=== PATIENT | male | born 1970 | race American Indian/Alaskan Native ===

== ENCOUNTER 2020-06-17 07:58 | Emergency (ER) | payer OTHER ==
[2020-06-17 08:06] VITALS: BP 139/81
[2020-06-17 09:14] LABS: Bilirubin,Urine NEG (Negative); Blood,Urine NEG (Negative); Color,Urine Yellow (Yellow); Mucus,Urine FEW /HPF; Urobilinogen,Urine < 2.0 mg/dL (<2.0); WBC,Urine < 1.0 /HPF (0.0-6.0)
[2020-06-17] MEDS ORDERED: SODIUM CHLORIDE 0.9% 1000 ML 1,000 ML IV ONE (10:12)
[2020-06-17] MEDS ORDERED: KETOROLAC 30 MG/1 ML INJ IM ONE (10:14)
--- NOTE | 2020-06-17 10:17 | Emergency Department Report ---
ED Abdominal Pain HPI - General Chief Complaint: Abdominal Pain Stated Complaint: FLANK PAINS RT Time Seen by Provider: 06/17/20 10:07 Source: patient Mode of arrival: Ambulatory Limitations: No Limitations - History of Present Illness Initial Comments: 49-year-old male in no apparent distress presents with right flank pain off-and-on x2 weeks. Over the last 24 hours the pain has intensified and is now a 10/10. He denies nausea no vomiting no diarrhea. He denies chest pain,shortness of breath ,fever ,chills. Last bowel movement was yesterday. P atient denies any past medical history -: week(s) (2) Location: R flank Radiation: none Migration to: no migration Severity scale (0 -10): 10 Quality: sharp Consistency: intermittent Improves With: nothing Worsens With: nothing Associated Symptoms: denies other symptoms. denies: nausea, vomiting, diarrhea, fever, chills, constipation, dysuria, hematemesis, melena, hematuria, anorexia, syncope - Related Data Allergies Allergy/AdvReac Type Severity Reaction Status Date / Time No Known Allergies Allergy Unverified 06/17/20 08:04 ED Review of Systems ROS: Stated complaint: FLANK PAINS RT Other details as noted in HPI Comment: All other systems reviewed and negative Constitutional: no symptoms reported Eyes: denies: eye pain, eye discharge ENT: denies: ear pain Respiratory: no symptoms reported Cardiovascular: denies: chest pain, palpitations, dyspnea on exertion, edema, syncope, paroxysmal nocturnal dyspnea Endocrine: no symptoms reported Gastrointestinal: abdominal pain (Right flank). denies: nausea, vomiting, diarrhea, constipation Genitourinary: denies: urgency, dysuria, frequency, hematuria, discharge, testicular pain, testicular mass Skin: denies: rash, lesions, change in color, change in hair/nails, pruritus Neurological: denies: headache, weakness, numbness, paresthesias, abnormal gait, vertigo Psychiatric: denies: anxiety, depression, homicidal thoughts ED Past Medical Hx - Past Medical History Previous Medical History?: No - Surgical History Past Surgical History?: No - Social History Smoking Status: Current Every Day Smoker Substance Use Type: Alcohol ED Physical Exam - General Limitations: No Limitations General appearance: alert, in no apparent distress - Head Head exam: Present: normal inspection. Absent: atraumatic - Eye Eye exam: Present: normal appearance - ENT ENT exam: Present: normal exam, mucous membranes moist - Neck Neck exam: Present: normal inspection - Respiratory Respiratory exam: Present: normal lung sounds bilaterally. Absent: respiratory distress, wheezes, rales, rhonchi - Cardiovascular Cardiovascular Exam: Present: regular rate, normal heart sounds - GI/Abdominal GI/Abdominal exam: Present: normal bowel sounds. Absent: soft, distended, tenderness, guarding, rebound, rigid - Rectal Rectal exam: Absent: deferred - exam: Absent: normal inspection External exam: Absent: normal external exam - Extremities Exam Extremities exam: Present: normal inspection, normal capillary refill - Back Exam Back exam: Present: normal inspection - Neurological Exam Neurological exam: Present: alert, oriented X3 - Psychiatric Psychiatric exam: Present: normal affect - Skin Skin exam: Present: warm, dry, intact. Absent: rash ED Course Vital Signs 06/17/20 06/17/20 06/17/20 08:03 08:07 10:45 Temperature 98.2 F Pulse Rate 90 Respiratory 19 95 H 18 Rate Blood Pressure 139/81 O2 Sat by Pulse 86 Oximetry - Reevaluation(s) Reevaluation #1: 06/17/20 11:57 Patient reports feeling better pain is gone. CT of his abdomen with no acute findings. Labs are within normal limits I explained results to patient ED Medical Decision Making - Lab Data Result diagrams: 06/17/20 11:06 06/17/20 11:06 - Radiology Data Radiology results: report reviewed CT of abdomen/pelvis FINDINGS: LOWER CHEST: Unremarkable LIVER: Unremarkable GALLBLADDER/BILIARY TREE: Cholelithiasis. No CT evidence of cholecystitis. PANCREAS: Unremarkable SPLEEN: Unremarkable ADRENALS: Unremarkable KIDNEYS / URETER: Unremarkable URINARY BLADDER: Unremarkable REPRODUCTIVE ORGANS: Unremarkable STOMACH / SMALL BOWEL: Stomach and small bowel are normal in caliber. No e vidence of bowel inflammation. COLON: The colon is unremarkable. The appendix is normal in caliber. LYMPH NODES: No significant adenopathy. VASCULATURE: No significant abnormality. OTHER: No free air, free fluid, or focal fluid collection is identified. SKELETAL SYSTEM: No acute osseous findings. IMPRESSION: No acute abnormality of the abdomen or pelvis. - Medical Decision Making 49-year-old male with intermittent abdominal pain x2 weeks not associated with vomiting or diarrhea. CT of the abdomen without contrast reveals no acute findings. Urinalysis not with no signs of infection. Lab work no acute findings he does have mildly elevated glucose at 111 and mildly elevated sodium at 108. Otherwise no acute findings his pain was relieved with IV Toradol I discussed all findings with the patient the plan is for outpatient follow-up with his primary care doctor or Dr. Russell - Differential Diagnosis Rule out kidney stone acute appendicitis diverticulitis irritable bowel gas Critical Care Time: No Critical care attestation.: If time is entered above; I have spent that time in minutes in the direct care of this critically ill patient, excluding procedure time. ED Disposition Clinical Impression: Abdominal pain in male Disposition: TO HOME OR SELFCARE Is pt being admited?: No Does the pt Need Aspirin: No Condition: Stable Instructions: Flank Pain, Adult, [id number], Abdominal Pain, Adult, [id number] Additional Instructions: Follow-up with your primary care doctor or with Dr. Russell in 3 to 5 days. Return to the emergency room for worsening symptoms such as increased pain vomiting diarrhea inability to eat. Take over the counter Tylenol 2 tablets e very 6 hours as needed for pain Referrals: [facility] [Other] - 3-5 Days VA RUSSELL MD [Staff Physician] - 3-5 Days Time of Disposition: 12:09
--- NOTE | 2020-06-17 10:54 | Cat Scan Report ---
CT ABDOMEN AND PELVIS WITHOUT CONTRAST INDICATION / CLINICAL INFORMATION: Right-sided pain TECHNIQUE: Axial CT images were obtained through the abdomen and pelvis without IV contrast. All CT scans at this location are performed using CT dose reduction for ALARA by means of automated exposure control. COMPARISON: None available. FINDINGS: LOWER CHEST: Unremarkable LIVER: Unremarkable GALLBLADDER/BILIARY TREE: Cholelithiasis. No CT evidence of cholecystitis. PANCREAS: Unremarkable SPLEEN: Unremarkable ADRENALS: Unremarkable KIDNEYS / URETER: Unremarkable URINARY BLADDER: Unremarkable REPRODUCTIVE ORGANS: Unremarkable STOMACH / SMALL BOWEL: Stomach and small bowel are normal in caliber. No evidence of bowel inflammati on. COLON: The colon is unremarkable. The appendix is normal in caliber. LYMPH NODES: No significant adenopathy. VASCULATURE: No significant abnormality. OTHER: No free air, free fluid, or focal fluid collection is identified. SKELETAL SYSTEM: No acute osseous findings. IMPRESSION: No acute abnormality of the abdomen or pelvis. Signer Name: Andre Penaloza MD Signed: 06/17/2020 10:49 AM Workstation Name: [id number]
[2020-06-17 11:22] LABS: Hematocrit 40.5 % (35.5-45.6); Hemoglobin 13.6 gm/dl (11.8-15.2); Mean Corpuscular HGB Conc 34 % (32-34); Mean Corpuscular Volume 85 fl (84-94); Platelet Count 362 K/mm3 (140-440); Red Blood Count 4.77 M/mm3 (3.65-5.03); Red Cell Distribution Width 13.4 % (13.2-15.2)
[2020-06-17 11:41] LABS: Alanine Aminotransferase 15 units/L (7-56); Albumin 4.2 g/dL (3.9-5); BUN/Creatinine Ratio 10; Blood Urea Nitrogen 9 mg/dL (9-20); Calcium 9.5 mg/dL (8.4-10.2); Hemolysis Index 7
== END 2020-06-17 13:09 | disposition home or self-care (01) ==
LOC: ED 07:58
DX: R10.9 Unspecified abdominal pain (principal); F17.200 Nicotine dependence, unspecified, uncomplicated
CPT/HCPCS: 36415; 74176; 80053; 81001; 83690; 85027; 96360; 96372; 99284; J1885; J7030